=== PATIENT | female | born 1995 | race Caucasian/White ===

== ENCOUNTER 2021-10-14 23:48 | Inpatient (IN) | payer BC ==
[2021-10-15] MEDS ORDERED: Nalbuphine 10 MG/1 ML Vial IVPUSH PRN (00:58)
[2021-10-15] MEDS ORDERED: Calcium Carbonate 500 MG Tab.Chew PO PRN (00:58)
[2021-10-15] MEDS ORDERED: Sodium Chloride 0.9% 10 ML Syringe FLUSH PRN (00:58)
[2021-10-15] MEDS ORDERED: Ondansetron 4 MG/2 ML SDV IVPUSH PRN ×2 (00:58→06:59)
[2021-10-15] MEDS ORDERED: Lidocaine 1% 50 ML MDV INJECT PRN (00:58)
[2021-10-15] MEDS ORDERED: Oxytocin/Lactated Ringers 10 UNIT/1,000 ML BAG IV SCH ×3 (01:00→15:51)
[2021-10-15] MEDS: Lactated Ringers 1,000 ML IV SCH ×2 (01:40→10:10)
[2021-10-15] MEDS ORDERED: ePHEDrine 50 MG/ML SDV IVPUSH PRN (06:59)
[2021-10-15] MEDS ORDERED: fentaNYL 100 MCG/2 ML SDV EPIDUR PRN (06:59)
[2021-10-15] MEDS ORDERED: Bupivacaine/fentaNYL/NS 100 ML Bag EPIDUR SCH (07:00)
[2021-10-15] MEDS ORDERED: Bupivacaine 0.25% 10 ML SDV ONE (07:00)
--- NOTE | 2021-10-15 07:04 | PCM.PREANE ---
Preanesthetic Assessment - Procedure Proposed Procedure: Epidural - Anesthesia/Transfusion/Family Hx Anesthesia History: Prior Anesthesia Without Reaction Family History of Anesthesia Reaction: No Transfusion History: No Prior Transfusion(s) Intubation History: Unknown - Review of Systems General: No Symptoms Pulmonary: No Symptoms (Covid +: (09/16/2021) only symptoms being loss of taste and smell.) Cardiovascular: No Symptoms Gastrointestinal: No Symptoms (GERD) Neurological: No Symptoms Other: Reports: Diabetes (Gestational DM: BS=88), Anxiety - Physical Assessment NPO Status Date: 10/14/21 NPO Status Time: 19:30 Vital Signs: Last Vital Signs Temp 36.9 C 10/15/21 01:01 Pulse 109 H 10/15/21 01:01 Resp 15 10/15/21 01:01 BP 129/91 H 10/15/21 01:01 Pulse Ox 98 10/15/21 01:01 Height: 1.63 m Weight: 67.585 kg ASA Class: 2 Mental Status: Alert & Oriented x3 Airway Class: Mallampati = 2 Dentition: Reports: Normal Dentition (upper and lower retainers's/ right nare ring noted.), Caries Thyro-Mental Finger Breadths: 3 Mouth Opening Finger Breadths: 3 ROM/Head Extension: Full Lungs: Clear to Auscultation, Normal Respiratory Effort Cardiovascular: Regular Rate, Regular Rhythm, No Murmurs - Lab Values: Laboratory Last Values WBC 10.89 K/mm3 (3.98-10.04) H 10/15/21 01:20 RBC 4.04 M/mm3 (3.98-5.22) 10/15/21 01:20 Hgb 13.3 gm/dl (11.2-15.7) 10/15/21 01:20 Hct 38.2 % (34.1-44.9) 10/15/21 01:20 MCV 94.6 fl (79.4-94.8) 10/15/21 01:20 MCH 32.9 pg (25.6-32.2) H 10/15/21 01:20 MCHC 34.8 g/dl (32.2-35.5) 10/15/21 01:20 RDW Std Deviation 42.2 fL (36.4-46.3) 10/15/21 01:20 Plt Count 188 K/mm3 (182-369) D 10/15/21 01:20 MPV 10.6 fl (9.4-12.3) 10/15/21 01:20 Neut % (Auto) 69.6 % (34.0-71.1) 10/15/21 01:20 Lymph % (Auto) 19.7 % (19.3-51.7) 10/15/21 01:20 [place] % (Auto) 7.4 % (4.7-12.5) 10/15/21 01:20 Eos % (Auto) 2.4 (0.7-5.8) 10/15/21 01:20 Baso % (Auto) 0.3 % (0.1-1.2) 10/15/21 01:20 Neut # (Auto) 7.59 K/mm3 (1.56-6.13) H 10/15/21 01:20 Lymph # (Auto) 2.14 K/mm3 (1.18-3.74) 10/15/21 01:20 [place] # (Auto) 0.81 K/mm3 (0.24-0.36) H 10/15/21 01:20 Eos # (Auto) 0.26 K/mm3 (0.04-0.36) 10/15/21 01:20 Baso # (Auto) 0.03 K/mm3 (0.01-0.08) 10/15/21 01:20 POC Glucose 88 mg/dL (70-99) 10/15/21 06:33 Blood Type O POSITIVE 10/15/21 01:20 Above labs reviewed and noted and within acceptable ranges to proceed with epidural if desired. - Allergies Allergies/Adverse Reactions: Allergies Allergy/AdvReac Type Severity Reaction Status Date / Time No Known Allergies Allergy Verified 10/15/21 00:58 - Anesthesia Plan Pre-Op Medication Ordered: None - Acknowledgements Anesthesia Type Planned: Epidural Pt an Appropriate Candidate for the Planned Anesthesia: Yes Alternatives and Risks of Anesthesia Discussed w Pt/Guardian: Yes Pt/Guardian Understands and Agrees with Anesthesia Plan: Yes PreAnesthesia Questionnaire HEENT History: Reports: None Cardiovascular History: Reports: None Respiratory History: Reports: None Gastrointestinal History: Reports: None Genitourinary History: Reports: None PROJECT DEVELOPMENT MANAGER History: Reports: Musculoskeletal History: Reports: None Neurological History: Reports: None Psychiatric History: Reports: Anxiety, Depression Other Psychiatric History: took citalopram until January when stopped upon positive preg test. Pt states would like to start again on post day one if possible, and dose was 10mg PO daily. Endocrine/Metabolic History: Reports: Diabetes, Gestational, Other (See Below) Other Endocrine/Metabolic History: diet controlled, with sugars well managed throughout per pt Hematologic History: Reports: None Immunologic History: Reports: None Oncologic (Cancer) History: Reports: None Dermatologic History: Reports: None - Infectious Disease History Infectious Disease History: Reports: None - Past Surgical History Head Surgeries/Procedures: Reports: None HEENT Surgical History: Reports: Adenoidectomy, Myringotomy w Tube(s), Oral Surgery, Tonsillectomy Other HEENT Surgeries/Procedures: all above surgical hx age 3; with wisdom teeth (top only) removed in 2017 Cardiovascular Surgical History: Reports: None Respiratory Surgical History: Reports: None GI Surgical History: Reports: None Female Surgical History: Reports: None Endocrine Surgical History: Reports: None Neurological Surgical History: Reports: None Musculoskeletal Surgical History: Reports: None Oncologic Surgical History: Reports: None Dermatological Surgical History: Reports: Plastic Surgical Reconstruction/Repair - SUBSTANCE USE Tobacco Use Status *Q: Never Tobacco User Second Hand Smoke Exposure: No Recreational Drug Use History: No - CURRENT (IN HOUSE) MEDS Current Meds: Current Medications Calcium Carbonate/Glycine (Calcium Carbonate 500 Mg Tab.Chew) 1,000 mg PO Q2H PRN PRN Reason: Indigestion Ephedrine Sulfate (Ephedrine 50 Mg/Ml Sdv) 5 mg IVPUSH ASDIRECTED PRN PRN Reason: Hypotension Fentanyl (Fentanyl 100 Mcg/2 Ml Sdv) 100 mcg EPIDUR Q3H PRN PRN Reason: Pain Fentanyl/Bupivacaine HCl (Bupivacaine/Fentanyl/Ns 100 Ml Bag) 100 ml EPIDUR ASDIRECTED DIMA Oxytocin/Lactated Ringer's (Pitocin In Lr 10 Units/1,000 Ml) 10 unit in 1,000 mls @ 12 mls/hr IV TITRATE DIMA; Protocol Last Titration: 10/15/21 05:30 Dose: 10 munits/min, 60 mls/hr Documented by: Oxytocin/Lactated Ringer's (Pitocin In Lr 10 Units/1,000 Ml) 10 unit in 1,000 mls @ 500 mls/hr IV .CONTINUOUS [facility] Lactated Ringer's (Ringers, Lactated) 1,000 mls @ 100 mls/hr IV ASDIRECTED [facility] Last Admin: 10/15/21 01:40 Dose: 100 mls/hr Documented by: Lidocaine HCl (Lidocaine 1% 50 Ml Mdv) 50 ml INJECT ONETIME PRN PRN Reason: Other Miscellaneous Medication (Phenylephrine Hcl In 0.9% Nacl 1 Mg/10 Ml Syringe) 0.1 mg IVPUSH Q10M PRN PRN Reason: Hypotension Nalbuphine HCl (Nalbuphine 10 Mg/1 Ml Vial) 10 mg IVPUSH Q2H PRN PRN Reason: Pain Ondansetron HCl (Ondansetron 4 Mg/2 Ml Sdv) 4 mg IVPUSH Q4H PRN PRN Reason: Nausea/Vomiting Ondansetron HCl (Ondansetron 4 Mg/2 Ml Sdv) 4 mg IVPUSH ONETIME PRN PRN Reason: Nausea/Vomiting Sodium Chloride (Sodium Chloride 0.9% 10 Ml Syringe) 10 ml FLUSH ASDIRECTED PRN PRN Reason: Keep Vein Open
--- NOTE | 2021-10-15 08:15 | PCM.LDHP ---
L&D History of Present Illness - General Date of Service: 10/15/21 Admit Problem/Dx: Patient Status Order with Admit Dx/Problem 10/14/21 23:45 Patient Status [ADT] Routine 10/15/21 01:01 Patient Status [ADT] Routine Admission Diagnosis/Problem Admission Diagnosis/Problem Source of Information: Patient History Limitations: Reports: No Limitations - History of Present Illness Introduction:: Supriya Mills is a 25-year-old at 38 weeks 2 days (ALEXIA 10/27/2021) by an early ultrasound who presents with spontaneous rupture membranes. She reports that at around 11 PM on 10/14/2021 she had a large gush of fluid that was clear and odorless. She continued to have leaking of fluid afterwards. She states that there was a small amount of pink-tinged fluid initially. She was not feeling much for contractions after her water had broken but was noted to have some small contractions on monitoring when she first arrived to L&D. She reports that she had been feeling good movement prior to arrival to [facility]. She has been checking her blood sugars at home and they have been very well controlled. Timing/Duration: Reports: sudden onset (With large gush of fluid at around 11 PM on 10/14/2021) Location, : Reports: Lower back, Pelvic Quality: Reports: Pressure Severity: Mild Associated Symptoms: Reports: vaginal fluid, large amount. Denies: vaginal bleeding, vaginal discharge Present Illness Comments:: Supriya Mills is a 25-year-old at 38 weeks 2 days (ALEXIA 10/27/2021) by an early ultrasound who presents with spontaneous rupture membranes with clear fluid. She has had routine care with Dr. Edwards starting at 11 weeks gestational age. Patient has history of anxiety and depression and was on citalopram prior to and had stopped taking it prior to positive test. She received Tdap on 08/07/2021. She was diagnosed with gestational diabetes during and was able to keep her blood sugars well controlled with diet and exercise changes. She is not on any medication for her gestational diabetes. She declined influenza and COVID-19 vaccine. Her care is with Dr. Edwards and is complicated by: * A1 gestational diabetes, patient's blood sugars have been well controlled during with diet and exercise * History of anxiety and depression and was on citalopram prior to . She stopped taking the medication prior to her and desires to restart on medication after delivery. LPN MEDICAL ASSISTANT history : Current labs Blood type: O+ Antibody screen: Negative First trimester hematocrit/hemoglobin: 35.3%/12.2 on 04/09/2021 Platelets: 256 on 04/09/2021 Urine culture: Mixed skyla suggestive of contamination Rubella status: Immune Hepatitis B surface antigen: Negative RPR: Negative Hepatitis C: Negative HIV: Negative Gonorrhea: Negative Chlamydia: Negative Genetic testing: Normal Prequel genetic testing Anatomy ultrasound: Normal anatomy, no evidence of placenta previa, 44th percentile on 06/15/2021 One hour glucose tolerance test: 170 Second trimester hematocrit/hemoglobin: 35.0%/12.1 on 07/26/2021 Platelets: 273 on 07/26/2021 3-hour glucose tolerance test: Fasting 79, 1 hour 175, 2-hour 164 and 3-hour 151 GBS status: Negative - Related Data Allergies/Adverse Reactions: Allergies Allergy/AdvReac Type Severity Reaction Status Date / Time No Known Allergies Allergy Verified 10/15/21 00:58 Past Medical History HEENT History: Reports: None Cardiovascular History: Reports: None Respiratory History: Reports: None Gastrointestinal History: Reports: None Genitourinary History: Reports: None LPN MEDICAL ASSISTANT History: Reports: : 1 Para: 0 Musculoskeletal History: Reports: None Neurological History: Reports: None Psychiatric History: Reports: Anxiety, Depression Other Psychiatric History: took citalopram until January when stopped upon positive preg test. Pt states would like to start again on post day one if possible, and dose was 10mg PO daily. Endocrine/Metabolic History: Reports: Diabetes, Gestational, Other (See Below) Other Endocrine/Metabolic History: diet controlled, with sugars well managed throughout per pt Hematologic History: Reports: None Immunologic History: Reports: None Oncologic (Cancer) History: Reports: None Dermatologic History: Reports: None - Infectious Disease History Infectious Disease History: Reports: None - Past Surgical History Head Surgeries/Procedures: Reports: None HEENT Surgical History: Reports: Adenoidectomy, Myringotomy w Tube(s), Oral Surgery, Tonsillectomy Other HEENT Surgeries/Procedures: all above surgical hx age 3; with wisdom teeth (top only) removed in 2017 Cardiovascular Surgical History: Reports: None Respiratory Surgical History: Reports: None GI Surgical History: Reports: Appendectomy (in 2014 or 2015) Female Surgical History: Reports: None Endocrine Surgical History: Reports: None Neurological Surgical History: Reports: None Musculoskeletal Surgical History: Reports: None Oncologic Surgical History: Reports: None Dermatological Surgical History: Reports: Plastic Surgical Reconstruction/Repair Social & Family History - Family History Family Medical History: No Pertinent Family History - Tobacco Use Tobacco Use Status *Q: Never Tobacco User Second Hand Smoke Exposure: No - Tobacco Core Measures Tobacco Use/Smoking Within Last 30 Days: No Smokeless Tobacco Use in Last 30 Days: No - Caffeine Use Caffeine Use: Reports: None - Alcohol Use Alcohol Use History: No - Recreational Drug Use Recreational Drug Use: No H&P Review of Systems - Review of Systems: Review Of Systems: See Below General: Denies: Fever, Chills, Malaise, Fatigue HEENT: Reports: Sinus Congestion. Denies: Headaches, Rhinitis, Post Nasal Drip, Sore Throat, Visual Changes Pulmonary: Denies: Shortness of Breath, Wheezing, Pleuritic Chest Pain, Cough Cardiovascular: Denies: Chest Pain, Palpitations, Dyspnea on Exertion, Orthopnea Gastrointestinal: Denies: Abdominal Pain, Constipation, Diarrhea, Nausea, Vo miting Genitourinary: Denies: Dysuria, Frequency, Burning, Pain, Urgency Musculoskeletal: Reports: Back Pain (and hip pain of ) Skin: Denies: Rash, Lesions Psychiatric: Denies: Depression, Anxiety L&D Exam - Exam Exam: See Below - Vital Signs Vital Signs: Last Vital Signs Temp 36.9 C 10/15/21 01:01 Pulse 109 H 10/15/21 01:01 Resp 15 10/15/21 01:01 BP 129/91 H 10/15/21 01:01 Pulse Ox 98 10/15/21 01:01 Weight: 67.585 kg - OB Specific Contraction Duration (sec): 60-75 Contraction Frequency (min): 2-3 Contraction Intensity: Strong Movement: Active Heart Tones: Present Heart Tones per Min: 140 (+15 x 15 accelerations, no decelerations) Heart Rate (FHR) Variability: Moderate (6-25 bpm) Presentation: Vertex (By bedside ultrasound) Estimated Weight: 6.5-7 pounds by Jj - Nicholson Score Nicholson Score Cervix Position: Anterior Nicholson Score Consistency: Soft Nicholson Score Effacement: >80% (90%) Nicholson Score Dilation: > 5 cm (4-5 cm) Nicholson Score Infant's Station: -1 ,0 (0) Nicholson Score Total: 12 - Exam General: Alert, Oriented HEENT: Conjunctiva Clear, EOMI Neck: Supple, Trachea Midline Lungs: Clear to Auscultation, Normal Respiratory Effort Cardiovascular: Regular Rate, Regular Rhythm GI/Abdominal Exam: Soft, Non-Tender, No Distention, Other (Gravid). No: Guarding, Rigid, Rebound Genitourinary: Normal external exam Skin: Warm, Dry, Intact Psychiatric: Alert, Normal Affect, Normal Mood - Patient Data Lab Results Last 24 hrs: Laboratory Results - last 24 hr 10/15/21 10/15/21 10/15/21 Range/Units 01:20 01:20 01:45 WBC 10.89 H (3.98-10.04) K/mm3 RBC 4.04 (3.98-5.22) M/mm3 Hgb 13.3 (11.2-15.7) gm/dl Hct 38.2 (34.1-44.9) % MCV 94.6 (79.4-94.8) fl MCH 32.9 H (25.6-32.2) pg MCHC 34.8 (32.2-35.5) g/dl RDW Std Deviation 42.2 (36.4-46.3) fL Plt Count 188 D (182-369) K/mm3 MPV 10.6 (9.4-12.3) fl Neut % (Auto) 69.6 (34.0-71.1) % Lymph % (Auto) 19.7 (19.3-51.7) % [place] % (Auto) 7.4 (4.7-12.5) % Eos % (Auto) 2.4 (0.7-5.8) Baso % (Auto) 0.3 (0.1-1.2) % Neut # (Auto) 7.59 H (1.56-6.13) K/mm3 Lymph # (Auto) 2.14 (1.18-3.74) K/mm3 [place] # (Auto) 0.81 H (0.24-0.36) K/mm3 Eos # (Auto) 0.26 (0.04-0.36) K/mm3 Baso # (Auto) 0.03 (0.01-0.08) K/mm3 POC Glucose 84 (70-99) mg/dL Blood Type O POSITIVE 10/15/21 10/15/21 Range/Units 03:28 06:33 WBC (3.98-10.04) K/mm3 RBC (3.98-5.22) M/mm3 Hgb (11.2-15.7) gm/dl Hct (34.1-44.9) % MCV (79.4-94.8) fl MCH (25.6-32.2) pg MCHC (32.2-35.5) g/dl RDW Std Deviation (36.4-46.3) fL Plt Count (182-369) K/mm3 MPV (9.4-12.3) fl Neut % (Auto) (34.0-71.1) % Lymph % (Auto) (19.3-51.7) % [place] % (Auto) (4.7-12.5) % Eos % (Auto) (0.7-5.8) Baso % (Auto) (0.1-1.2) % Neut # (Auto) (1.56-6.13) K/mm3 Lymph # (Auto) (1.18-3.74) K/mm3 [place] # (Auto) (0.24-0.36) K/mm3 Eos # (Auto) (0.04-0.36) K/mm3 Baso # (Auto) (0.01-0.08) K/mm3 POC Glucose 96 88 (70-99) mg/dL Blood Type Result Diagrams: 10/15/21 01:20 - Problem List (1) 38 weeks gestation of SNOMED Code(s): 93280159 ICD Code: Z3A.38 - 38 WEEKS GESTATION OF Status: Acute Current Visit: Yes (2) Diet controlled White classification A1 gestational diabetes mellitus (GDM) SNOMED Code(s): 91633041 ICD Code: O24.410 - GESTATIONAL DIABETES MELLITUS IN , DIET CON TROLLED Status: Acute Current Visit: Yes (3) Depression SNOMED Code(s): 58819531 ICD Code: F32.A - DEPRESSION, UNSPECIFIED Status: Acute Current Visit: Yes (4) Anxiety SNOMED Code(s): 37088868 ICD Code: F41.9 - ANXIETY DISORDER, UNSPECIFIED Status: Acute Current Visit: Yes Problem List Initiated/Reviewed/Updated: Yes Orders Last 24hrs: Active Orders 24 hr Category Date Time Status Patient Status [ADT] Routine ADT 10/14/21 23:45 Active Patient Status [ADT] Routine ADT 10/15/21 01:01 Active Activity as Tolerated [RC] PFP Care 10/15/21 01:01 Active Blood Glucose Check, Bedside [RC] Q4HR Care 10/15/21 01:30 Active Communication Order [RC] ASDIRECTED Care 10/15/21 01:01 Active Heart Tones [RC] ASDIRECTED Care 10/15/21 01:03 Active Notify Provider [RC] ASDIRECTED Care 10/15/21 06:59 Active Notify Provider [RC] PFP Care 10/15/21 01:01 Active Notify Provider [RC] PRN Care 10/15/21 01:01 Active Oxygen Therapy [RC] ASDIRECTED Care 10/15/21 06:59 Active Peripheral IV Care [RC] . DIRECTED Care 10/15/21 01:03 Active Pulse Oximetry [RC] ASDIRECTED Care 10/15/21 06:59 Active Pump Management, Intrathecal [RC] ASDIRECTED Care 10/15/21 01:09 Active Urinary Catheter Assessment [RC] ASDIRECTED Care 10/15/21 00:58 Active Vaginal Exam [RC] PRN Care 10/14/21 23:45 Active Vital Signs [RC] PER UNIT ROUTINE Care 10/15/21 01:01 Active Regular Diet [DIET] Diet 10/15/21 Breakfast Active RAPID PLASMA REAGIN,RPR [CHEM] Routine Lab 10/15/21 01:20 Received TYPE AND SCREEN [BBK] Stat Lab 10/15/21 01:20 Results Bupivacaine/fentaNYL/NS [fentaNYL/Bupivacaine/NS 2 MCG- Med 10/15/21 07:00 Active 0.125% 100 ML] 100 ml EPIDUR ASDIRECTED Calcium Carbonate [Tums] Med 10/15/21 00:58 Active 1,000 mg PO Q2H PRN Lactated Ringers [Ringers, Lactated] 1,000 ml Med 10/15/21 01:00 Active IV ASDIRECTED Lidocaine 1% [Xylocaine 1%] Med 10/15/21 00:58 Active 50 ml INJECT ONETIME PRN Nalbuphine [Nubain] Med 10/15/21 00:58 Active 10 mg IVPUSH Q2H PRN Ondansetron [Zofran] Med 10/15/21 06:59 Active 4 mg IVPUSH ONETIME PRN Ondansetron [Zofran] Med 10/15/21 00:58 Active 4 mg IVPUSH Q4H PRN Oxytocin/Lactated Ringers [Pitocin in LR 10 Units/1,000 Med 10/15/21 01:00 Active ML] 10 unit in 1,000 ml IV .CONTINUOUS Oxytocin/Lactated Ringers [Pitocin in LR 10 Units/1,000 Med 10/15/21 01:00 Active ML] 10 unit in 1,000 ml IV TITRATE Phenylephrine HCl In 0.9% NaCl [Phenylephrine 1 MG/10 Med 10/15/21 06:59 Active ML-NS] 0.1 mg IVPUSH Q10M PRN Sodium Chloride 0.9% [Saline Flush] Med 10/15/21 00:58 Active 10 ml FLUSH ASDIRECTED PRN ePHEDrine [ePHEDrine sulfate] Med 10/15/21 06:59 Active 5 mg IVPUSH ASDIRECTED PRN fentaNYL [Sublimaze] Med 10/15/21 06:59 Active 100 mcg EPIDUR Q3H PRN Electronic Heart Tones Ext w TOCO [WOMSER] Oth 10/15/21 01:01 Ordered Routine Electronic Heart Tones Internal [WOMSER] Per Unit Oth 10/15/21 01:01 Ordered Routine Peripheral IV Insertion Adult [OM.PC] Routine Oth 10/15/21 01:01 Ordered Resuscitation Status Routine Resus Stat 10/15/21 00:58 Ordered Medication Orders Calcium Carbonate/Glycine (Calcium Carbonate 500 Mg Tab.Chew) 1,000 mg PO Q2H PRN PRN Reason: Indigestion Ephedrine Sulfate (Ephedrine 50 Mg/Ml Sdv) 5 mg IVPUSH ASDIRECTED PRN PRN Reason: Hypotension Fentanyl (Fentanyl 100 Mcg/2 Ml Sdv) 100 mcg EPIDUR Q3H PRN PRN Reason: Pain Fentanyl/Bupivacaine HCl (Bupivacaine/Fentanyl/Ns 100 Ml Bag) 100 ml EPIDUR ASDIRECTED [facility] Oxytocin/Lactated Ringer's (Pitocin In Lr 10 Units/1,000 Ml) 10 unit in 1,000 mls @ 12 mls/hr IV TITRATE [facility]; Protocol Last Titration: 10/15/21 05:30 Dose: 10 munits/min, 60 mls/hr Documented by: Titration: 10/15/21 04:53 Dose: 8 munits/min, 48 mls/hr Documented by: Titration: 10/15/21 03:58 Dose: 6 munits/min, 36 mls/hr Documented by: Titration: 10/15/21 03:00 Dose: 4 munits/min, 24 mls/hr Documented by: Admin: 10/15/21 02:15 Dose: 2 munits/min, 12 mls/hr Documented by: BRIGITTE Oxytocin/Lactated Ringer's (Pitocin In Lr 10 Units/1,000 Ml) 10 unit in 1,000 mls @ 500 mls/hr IV .CONTINUOUS [facility] Lactated Ringer's (Ringers, Lactated) 1,000 mls @ 100 mls/hr IV ASDIRECTED [facility] Last Admin: 10/15/21 01:40 Dose: 100 mls/hr Documented by: BRIGITTE Lidocaine HCl (Lidocaine 1% 50 Ml Mdv) 50 ml INJECT ONETIME PRN PRN Reason: Other Miscellaneous Medication (Phenylephrine Hcl In 0.9% Nacl 1 Mg/10 Ml Syringe) 0.1 mg IVPUSH Q10M PRN PRN Reason: Hypotension Nalbuphine HCl (Nalbuphine 10 Mg/1 Ml Vial) 10 mg IVPUSH Q2H PRN PRN Reason: Pain Ondansetron HCl (Ondansetron 4 Mg/2 Ml Sdv) 4 mg IVPUSH Q4H PRN PRN Reason: Nausea/Vomiting Ondansetron HCl (Ondansetron 4 Mg/2 Ml Sdv) 4 mg IVPUSH ONETIME PRN PRN Reason: Nausea/Vomiting Sodium Chloride (Sodium Chloride 0.9% 10 Ml Syringe) 10 ml FLUSH ASDIRECTED PRN PRN Reason: Keep Vein Open Assessment/Plan Comment:: Supriya Mills is a 25-year-old at 38 weeks 2 days with spontaneous rupture membranes and complicated by A1 gestational diabetes and history of anxiety/depression prior to Refer to observation for spontaneous rupture of membranes Continue Pitocin for augmentation of labor after patient did not have significant contractions on initial presentation Continuous monitoring Place IV and have Lactated Ringer's at 125 ml/hr May have small amounts of regular diet Activity as tolerated May have epidural as desired Plans to breast-feed after delivery Patient had fingerstick blood glucose levels checked every 2 hours and were normal for the first 6 hours of labor, we will decrease checks to every 4 hours at this time plan to increase checks to every 2 hours when she is 8 to 9 cm Patient is desires to restart on citalopram after delivery due to history of a nxiety and depression Anticipate vaginal delivery unless otherwise indicated Darío Pedro MD 8:31 AM 10/15/2020
[2021-10-15] MEDS ORDERED: Ibuprofen 600 MG Tab PO PRN (13:44)
[2021-10-15] MEDS ORDERED: Witch Hazel Medicated Pads 40/Jar TOP PRN ×2 (13:45→15:51)
[2021-10-15] MEDS ORDERED: Benzocaine/Menthol 20%-0.5% Spray 78 GM Cannister TOP PRN ×2 (13:46→15:51)
--- NOTE | 2021-10-15 13:58 | PCM.DEL ---
L & D Note - General Info Date of Service: 10/15/21 Mother's Due Date: 10/27/21 - Delivery Note Labor: Spontaneous, Augmented by Oxytocin Delivery Outcome: Livebirth Infant Delivery Method: Spontaneous Vaginal Delivery-Single Presentation: Left Occiput Anterior (FREEMAN) Nuchal Cord: None Prep: Povidone-Iodine (Betadine Anesthesia Type: Epidural Episiotomy Type: None Laceration: 2nd Degree (midline perineal laceration, repaired with 3-0 Vicryl), Labial (Right medial labia repaired with 4-0 Vicryl, left superior lateral and medial labia minora laceration repaired with 3-0 Vicryl and 4-0 Vicryl) Suture type: Vicryl Suture size: 3-0 Placenta: Intact, Spontaneous Cord: 3 Vessels Estimated Blood Loss: 300 Resuscitation Needed: No : Bulb Syringe, Stimulated, Warmed, Gervais Used Provider: Bennie Edwards Score 1 min: 8 Score 5 min: 9 Second Stage Interventions: Reports: Pushing Effectively, Pushing, Stirrups/Leg Supports Delivery Comments (Free Text/Narrative):: Stage I: Supriya Mills was admitted for spontaneous rupture membranes with large amount of clear fluid at home. On admission her cervix was dilated to 1 cm. She was GBS negative. She was started on Pitocin for augmentation of labor with not having any contractions after her water had broken. She was given an epidural for anesthesia. She progressed to complete and pushing. Stage II: On 10/15/2021 she had a normal vaginal delivery of a live female at 11:56. Apgars of 8 & 9. Weight of 2730 g (6 lbs 0.3 oz). Length of 19.0 inches. There was no nuchal cord. was delivered in FREEMAN position. The cord was doubly clamped and cut by father of the . was placed on mother's abdomen and taken to the warmer for further evaluation. Stage III: She had a spontaneous delivery of an intact placenta in James presentation. Three vessel cord. She was given pitocin and fundal massage. She had a second-degree midline perineal laceration that was repaired with 3-0 Vicryl. She had a right medial labia minora laceration that was repaired in running fashion with 4-0 Vicryl. She had a left labial laceration with extension from near the clitoral beard to the medial portion of the labia minora that was repaired with closing deep space with 3-0 Vicryl and the skin in a running fashion using 4-0 Vicryl. Patient had straight catheterization with return of 100 mL of of urine. Mom and baby were stable to recovery. EBL of 300 mL. Darío Pedro MD 2:25 PM 10/15/2021 - General Info Date of Service: 10/15/21 - Patient Data Vitals - Most Recent: Last Vital Signs Temp 36.9 C 10/15/21 01:01 Pulse 109 H 10/15/21 01:01 Resp 15 10/15/21 01:01 BP 129/91 H 10/15/21 01:01 Pulse Ox 98 10/15/21 01:01 Weight - Most Recent: 67.585 kg I&O - Last 24 Hours: Intake & Output 10/14/21 10/15/21 10/15/21 22:59 06:59 14:59 Intake Total 1999 Balance 1999 Lab Results Last 24 Hours: Laboratory Results - last 24 hr 10/15/21 10/15/21 10/15/21 Range/Units 01:20 01:20 01:45 WBC 10.89 H (3.98-10.04) K/mm3 RBC 4.04 (3.98-5.22) M/mm3 Hgb 13.3 (11.2-15.7) gm/dl Hct 38.2 (34.1-44.9) % MCV 94.6 (79.4-94.8) fl MCH 32.9 H (25.6-32.2) pg MCHC 34.8 (32.2-35.5) g/dl RDW Std Deviation 42.2 (36.4-46.3) fL Plt Count 188 D (182-369) K/mm3 MPV 10.6 (9.4-12.3) fl Neut % (Auto) 69.6 (34.0-71.1) % Lymph % (Auto) 19.7 (19.3-51.7) % Whitman % (Auto) 7.4 (4.7-12.5) % Eos % (Auto) 2.4 (0.7-5.8) Baso % (Auto) 0.3 (0.1-1.2) % Neut # (Auto) 7.59 H (1.56-6.13) K/mm3 Lymph # (Auto) 2.14 (1.18-3.74) K/mm3 Whitman # (Auto) 0.81 H (0.24-0.36) K/mm3 Eos # (Auto) 0.26 (0.04-0.36) K/mm3 Baso # (Auto) 0.03 (0.01-0.08) K/mm3 POC Glucose 84 (70-99) mg/dL Blood Type O POSITIVE 10/15/21 10/15/21 10/15/21 Range/Units 03:28 06:33 09:55 WBC (3.98-10.04) K/mm3 RBC (3.98-5.22) M/mm3 Hgb (11.2-15.7) gm/dl Hct (34.1-44.9) % MCV (79.4-94.8) fl MCH (25.6-32.2) pg MCHC (32.2-35.5) g/dl RDW Std Deviation (36.4-46.3) fL Plt Count (182-369) K/mm3 MPV (9.4-12.3) fl Neut % (Auto) (34.0-71.1) % Lymph % (Auto) (19.3-51.7) % Whitman % (Auto) (4.7-12.5) % Eos % (Auto) (0.7-5.8) Baso % (Auto) (0.1-1.2) % Neut # (Auto) (1.56-6.13) K/mm3 Lymph # (Auto) (1.18-3.74) K/mm3 Whitman # (Auto) (0.24-0.36) K/mm3 Eos # (Auto) (0.04-0.36) K/mm3 Baso # (Auto) (0.01-0.08) K/mm3 POC Glucose 96 88 75 (70-99) mg/dL Blood Type Med Orders - Current: Current Medications Benzocaine/Menthol (Benzocaine/Menthol 20%-0.5% [place] 78 Gm Cannister) 76 gm TOP ASDIRECTED PRN PRN Reason: Perineal Comfort Measure Calcium Carbonate/Glycine (Calcium Carbonate 500 Mg Tab.Chew) 1,000 mg PO Q2H PRN PRN Reason: Indigestion Ibuprofen (Ibuprofen 600 Mg Tab) 600 mg PO Q6H PRN PRN Reason: Pain Ondansetron HCl (Ondansetron 4 Mg/2 Ml Sdv) 4 mg IVPUSH Q4H PRN PRN Reason: Nausea/Vomiting Ondansetron HCl (Ondansetron 4 Mg/2 Ml Sdv) 4 mg IVPUSH ONETIME PRN PRN Reason: Nausea/Vomiting Sodium Chloride (Sodium Chloride 0.9% 10 Ml Syringe) 10 ml FLUSH ASDIRECTED PRN PRN Reason: Keep Vein Open Witch Lilibeth (Witch Lilibeth Medicated Pads 40/Jar) 1 pad TOP ASDIRECTED PRN PRN Reason: Perineal Comfort Measure Discontinued Medications Ephedrine Sulfate (Ephedrine 50 Mg/Ml Sdv) 5 mg IVPUSH ASDIRECTED PRN PRN Reason: Hypotension Fentanyl (Fentanyl 100 Mcg/2 Ml Sdv) 100 mcg EPIDUR Q3H PRN PRN Reason: Pain Last Admin: 10/15/21 10:09 Dose: 100 mcg Documented by: Fentanyl/Bupivacaine HCl (Bupivacaine/Fentanyl/Ns 100 Ml Bag) 100 ml EPIDUR ASDIRECTED DIMA Last Admin: 10/15/21 10:10 Dose: 100 ml Documented by: Oxytocin/Lactated Ringer's (Pitocin In Lr 10 Units/1,000 Ml) 10 unit in 1,000 mls @ 12 mls/hr IV TITRATE DIMA; Protocol Last Titration: 10/15/21 05:30 Dose: 10 munits/min, 60 mls/hr Documented by: Oxytocin/Lactated Ringer's (Pitocin In Lr 10 Units/1,000 Ml) 10 unit in 1,000 mls @ 500 mls/hr IV .CONTINUOUS DIMA Lactated Ringer's (Ringers, Lactated) 1,000 mls @ 100 mls/hr IV ASDIRECTED DIMA Last Admin: 10/15/21 10:10 Dose: 100 mls/hr Documented by: Lidocaine HCl (Lidocaine 1% 50 Ml Mdv) 50 ml INJECT ONETIME PRN PRN Reason: Other Miscellaneous Medication (Phenylephrine Hcl In 0.9% Nacl 1 Mg/10 Ml Syringe) 0.1 mg IVPUSH Q10M PRN PRN Reason: Hypotension Nalbuphine HCl (Nalbuphine 10 Mg/1 Ml Vial) 10 mg IVPUSH Q2H PRN PRN Reason: Pain Last Admin: 10/15/21 08:14 Dose: 10 mg Documented by: - Problem List & Annotations (1) 38 weeks gestation of SNOMED Code(s): 81990638 Code(s): Z3A.38 - 38 WEEKS GESTATION OF Status: Acute Current Visit: Yes (2) Diet controlled White classification A1 gestational diabetes mellitus (GDM) SNOMED Code(s): 96341122 Code(s): O24.410 - GESTATIONAL DIABETES MELLITUS IN , DIET CONTROLLED Status: Acute Current Visit: Yes (3) Depression SNOMED Code(s): 20704325 Code(s): F32.A - DEPRESSION, UNSPECIFIED Status: Acute Current Visit: Yes (4) Anxiety SNOMED Code(s): 53960397 Code(s): F41.9 - ANXIETY DISORDER, UNSPECIFIED Status: Acute Current Visit: Yes (5) Vaginal delivery SNOMED Code(s): 071921582 Code(s): O80 - ENCOUNTER FOR FULL-TERM UNCOMPLICATED DELIVERY Status: Acute Current Visit: Yes (6) Obstetric labial laceration, delivered, current hospitalization SNOMED Code(s): 105855157, 042272646, 090389720 Code(s): O70.0 - FIRST DEGREE PERINEAL LACERATION DURING DELIVERY Status: Acute Current Visit: Yes (7) Second degree perineal laceration during delivery SNOMED Code(s): 4481008 Code(s): O70.1 - SECOND DEGREE PERINEAL LACERATION DURING DELIVERY Status: Acute Current Visit: Yes - Problem List Review Problem List Initiated/Reviewed/Updated: Yes - My Orders Last 24 Hours: My Active Orders 10/14/21 23:45 Patient Status [ADT] Routine Vaginal Exam [RC] PRN 10/15/21 00:58 Urinary Catheter Assessment [RC] ASDIRECTED Calcium Carbonate [Tums] 1,000 mg PO Q2H PRN Ondansetron [Zofran] 4 mg IVPUSH Q4H PRN Sodium Chloride 0.9% [Saline Flush] 10 ml FLUSH ASDIRECTED PRN Resuscitation Status Routine 10/15/21 01:01 Patient Status [ADT] Routine Activity as Tolerated [RC] PFP Communication Order [RC] ASDIRECTED Notify Provider [RC] PFP Notify Provider [RC] PRN Vital Signs [RC] PER UNIT ROUTINE Electronic Heart Tones Ext w TOCO [WOMSER] Routine Electronic Heart Tones Internal [WOMSER] Per Unit Routine Peripheral IV Insertion Adult [OM.PC] Routine 10/15/21 01:03 Heart Tones [RC] ASDIRECTED Peripheral IV Care [RC] . DIRECTED 10/15/21 01:09 Pump Management, Intrathecal [RC] ASDIRECTED 10/15/21 01:20 RAPID PLASMA REAGIN,RPR [CHEM] Routine TYPE AND SCREEN [BBK] Stat 10/15/21 Breakfast Regular Diet [DIET] 10/15/21 13:44 Ibuprofen [Motrin] 600 mg PO Q6H PRN 10/15/21 13:45 witch Lilibeth [Tucks] 1 pad TOP ASDIRECTED PRN 10/15/21 13:46 Benzocaine/Menthol [Dermoplast Pain Relief 20%-0.5% [place]] 76 gm TOP ASDIRECTED PRN 10/15/21 13:54 Patient Status Manage Transfer [TRANSFER] Routine - Plan Plan:: Supriya Mills is a 25-year-old G1 now P1-0-0-1 s/p , PPD #0 with complicated by A1 gestational diabetes and history of anxiety/depression prior to Admit to inpatient following normal spontaneous vaginal delivery Continue Pitocin per unit protocol following delivery of placenta and lactated Ringer's until tolerating regular diet Regular diet Vitals per unit routine Ibuprofen and Tylenol for pain control Assist with breast-feeding as needed Continue to monitor lochia Restart citalopram for anxiety and depression Check fasting blood glucose levels in the morning during hospitalization Anticipate discharge home on day #2 Darío Pedro MD 2:25 PM 10/15/2021
[2021-10-15] MEDS ORDERED: Acetaminophen 325 MG Tab PO PRN (15:51)
[2021-10-15] MEDS ORDERED: Hydrocortisone Acetate 25 MG Supp RECTAL PRN (15:51)
[2021-10-15] MEDS: Ibuprofen 600 MG Tab PO PRN ×2 (16:54→23:50)
[2021-10-15] MEDS ORDERED: Magnesium Hydroxide 400 MG/5 ML Susp 30 ML Cup PO PRN (21:00)
[2021-10-15] MEDS: Docusate Sodium 100 MG Cap PO PRN (23:50)
[2021-10-16] MEDS: Prenatal Multivitamin with Calcium/Folic Acid/Iron Tab PO SCH (09:15)
[2021-10-16] MEDS: Citalopram 10 MG Tab PO SCH (09:15)
[2021-10-16] MEDS: Ibuprofen 600 MG Tab PO PRN ×2 (12:19→21:21)
--- NOTE | 2021-10-16 12:26 | PCM.SN.2 ---
- Free Text/Narrative Note: Post Progress Note PPD #1 Subjective: Doing well overall. Ambulating without difficulty. Lochia minimal. Voiding without difficulty. Tolerating regular diet without nausea or vomiting. Pain controlled with oral medications. Reports that she is feeling sore throughout the entirety of her body. Breast-feeding with minimal difficulty. Objective: Vitals: Vital Signs - 24 hr 10/15/21 10/16/21 10/16/21 20:04 03:35 08:42 Temperature 36.7 C 36.7 C 36.7 C Pulse, 106 H 98 103 H Peripheral Respiratory 14 13 Rate Blood Pressure 119/65 120/79 133/78 O2 Sat by Pulse 92 L 95 98 Oximetry 10/16/21 09:02 Temperature Pulse, Peripheral Respiratory 14 Rate Blood Pressure O2 Sat by Pulse Oximetry Physical Exam General: Alert and oriented, no acute distress Lungs: Clear to auscultation bilaterally Heart: Regular rate and rhythm Abdomen: Soft, minimal appropriate tenderness, non-distended, fundus midline, nontender, and 2 fingerbreadths below the umbilicus Extremities: No edema in bilateral lower extremities, no calf tenderness bilaterally. Laboratory Results - last 24 hr 10/15/21 10/15/21 10/16/21 Range/Units 01:20 01:20 07:25 POC Glucose 75 (70-99) mg/dL RPR Non-reactive (NONREACTIVE) Gel Antibody Screen Negative ASSESSMENT: 25-year-old female -0-0-1 s/p normal vaginal delivery PPD #1, complicated by A1 gestational diabetes and history of anxiety/depression prior to PLAN: Doing well Breast-feeding with minimal difficulty. Assist as needed Lochia minimal. Continue to monitor for appropriate lochia. Continue routine care Recommend for patient to continue to use Tylenol and ibuprofen for pain control. Discussed using heating pad to help with abdominal and low back soreness following delivery. Fasting blood glucose this morning was 75, no evidence of elevated levels. No treatment needed at this time. Patient restarted on citalopram 10 mg daily this morning. Patient to continue after discharge. Anticipate discharge home tomorrow Darío Pedro MD 12:25 PM 10/16/2021
--- NOTE | 2021-10-16 14:58 | PCM48HPAN ---
Post Anesthesia Note - EVALUATION WITHIN 48HRS OF ANESTHETIC Vital Signs in Normal Range: Yes Patient Participated in Evaluation: Yes Respiratory Function Stable: Yes Airway Patent: Yes Cardiovascular Function Stable: Yes Hydration Status Stable: Yes Pain Control Satisfactory: Yes Nausea and Vomiting Control Satisfactory: Yes Mental Status Recovered: Yes Vital Signs: Last Vital Signs Temp 98.1 F 10/16/21 08:42 Pulse 103 H 10/16/21 08:42 Resp 14 10/16/21 09:02 BP 133/78 10/16/21 08:42 Pulse Ox 98 10/16/21 08:42 - COMMENTS/OBSERVATIONS Free Text/Narrative:: Patient resting in bed holding baby when visiting with patient. Patient stated that she was "very happy" with her epidural and labor experience. Patient complained of mild back pain in epidural placement site but is controlled and has not gotten worse. Discussed signs and symptoms of infection, post-dural puncture headaches, post- depression, and if patient experiences increased back discomfort. Encouraged patient if any of those signs or symptoms develop to contact OB/Anesthesia so the patient can be treated accordingly if needed. Patient verbalized understanding. Patient did not voice any questions or concerns at this time. Jocelyn Jones, CANINE ENFORCEMENT OFFICER
[2021-10-16] MEDS: Docusate Sodium 100 MG Cap PO PRN (21:21)
--- NOTE | 2021-10-17 08:58 | PCM.SN.2 ---
- Free Text/Narrative Note: Post Progress Note PPD #2 Subjective: Doing well overall. Ambulating without difficulty. Lochia minimal. Voiding without difficulty. Tolerating regular diet without nausea or vomiting. Pain controlled with oral medications. Reports that the heating pad she used overnight helped significantly with her low back pain and soreness. Breast- feeding with formula supplementation without difficulty. Objective: Vitals: Vital Signs - 24 hr 10/16/21 10/16/21 10/16/21 09:02 12:26 20:30 Temperature 37.0 C Temperature [ 36.7 C Temporal] Pulse, 94 Peripheral Pulse, 93 Peripheral [ Pulse Oximetry] Respiratory 14 24 H 14 Rate Blood Pressure 133/80 Blood Pressure 125/68 [Right Upper Arm] O2 Sat by Pulse 97 93 L Oximetry 10/17/21 04:36 Temperature 36.7 C Temperature [ Temporal] Pulse, 101 H Peripheral Pulse, Peripheral [ Pulse Oximetry] Respiratory 14 Rate Blood Pressure 127/81 Blood Pressure [Right Upper Arm] O2 Sat by Pulse 100 Oximetry Physical Exam General: Alert and oriented, no acute distress Lungs: Clear to auscultation bilaterally Heart: Regular rate and rhythm Abdomen: Soft, minimal appropriate tenderness, non-distended, fundus midline, nontender, and 3 fingerbreadths below the umbilicus Extremities: No edema in bilateral lower extremities, no calf tenderness bilaterally. ASSESSMENT: 25-year-old female -0-0-1 s/p normal vaginal delivery PPD #2, complicated by A1 gestational diabetes and history of anxiety/depression prior to PLAN: Doing well Breast-feeding with formula supplementation due to jaundice of infant with minimal difficulty. Assist as needed Lochia minimal. Continue to monitor for appropriate lochia. Continue routine care Continue to use Tylenol and ibuprofen for pain control. Reports heating pad has helped with her abdominal and low back soreness. Continue citalopram 10 mg daily this morning. Patient to continue after discharge. Discharge home today Darío Pedro MD 8:58 AM 10/17/2021
--- NOTE | 2021-10-17 09:07 | PCM.DCSUM1 ---
Discharge Summary - Hospital Course Free Text/Narrative:: - General Info Date of Service: 10/15/21 Mother's Due Date: 10/27/21 - Delivery Note Labor: Spontaneous, Augmented by Oxytocin Delivery Outcome: Livebirth Infant Delivery Method: Spontaneous Vaginal Delivery-Single Presentation: Left Occiput Anterior (FREEMAN) Nuchal Cord: None Prep: Povidone-Iodine (Betadine Anesthesia Type: Epidural Episiotomy Type: None Laceration: 2nd Degree (midline perineal laceration, repaired with 3-0 Vicryl), Labial (Right medial labia repaired with 4-0 Vicryl, left superior lateral and medial labia minora laceration repaired with 3-0 Vicryl and 4-0 Vicryl) Suture type: Vicryl Suture size: 3-0 Placenta: Intact, Spontaneous Cord: 3 Vessels Estimated Blood Loss: 300 Resuscitation Needed: No : Bulb Syringe, Stimulated, Warmed, [place] Used Provider: Bennie Edwards Score 1 min: 8 Score 5 min: 9 Second Stage Interventions: Reports: Pushing Effectively, Pushing, Stirrups/Leg Supports Delivery Comments (Free Text/Narrative):: Stage I: Supriya Mills was admitted for spontaneous rupture membranes with large amount of clear fluid at home. On admission her cervix was dilated to 1 cm. She was GBS negative. She was started on Pitocin for augmentation of labor with not having any contractions after her water had broken. She was given an epidural for anesthesia. She progressed to complete and pushing. Stage II: On 10/15/2021 she had a normal vaginal delivery of a live female infant at 11:56. Apgars of 8 & 9. Weight of 2730 g (6 lbs 0.3 oz). Length of 19.0 inches. There was no nuchal cord. was delivered in FREEMAN position. The cord was doubly clamped and cut by father of the infant. Infant was placed on mother's abdomen and taken to the warmer for further evaluation. Stage III: She had a spontaneous delivery of an intact placenta in James presentation. Three vessel cord. She was given pitocin and fundal massage. She had a second-degree midline perineal laceration that was repaired with 3-0 Vicryl. She had a right medial labia minora laceration that was repaired in run oksana fashion with 4-0 Vicryl. She had a left labial laceration with extension from near the clitoral beard to the medial portion of the labia minora that was repaired with closing deep space with 3-0 Vicryl and the skin in a running fashion using 4-0 Vicryl. Patient had straight catheterization with return of 100 mL of of urine. Mom and baby were stable to recovery. EBL of 300 mL. Diagnosis: Stroke: No - Discharge Data Discharge Date: 10/17/21 Discharge Disposition: Home, Self-Care 01 Condition: Good - Referral to Home Health Primary Care Physician: Bennie Edwards MD - Discharge Diagnosis/Problem(s) (1) 38 weeks gestation of SNOMED Code(s): 30060450 ICD Code: Z3A.38 - 38 WEEKS GESTATION OF Status: Acute Current Visit: Yes (2) Diet controlled White classification A1 gestational diabetes mellitus (GDM) SNOMED Code(s): 97695014 ICD Code: O24.410 - GESTATIONAL DIABETES MELLITUS IN , DIET CONTROLLED Status: Acute Current Visit: Yes (3) Depression SNOMED Code(s): 44504877 ICD Code: F32.A - DEPRESSION, UNSPECIFIED Status: Acute Current Visit: Yes (4) Anxiety SNOMED Code(s): 38686438 ICD Code: F41.9 - ANXIETY DISORDER, UNSPECIFIED Status: Acute Current Visit: Yes (5) Vaginal delivery SNOMED Code(s): 367725591 ICD Code: O80 - ENCOUNTER FOR FULL-TERM UNCOMPLICATED DELIVERY Status: Acute Current Visit: Yes (6) Obstetric labial laceration, delivered, current hospitalization SNOMED Code(s): 039046970, 102493703, 174633877 ICD Code: O70.0 - FIRST DEGREE PERINEAL LACERATION DURING DELIVERY Status: Acute Current Visit: Yes (7) Second degree perineal laceration during delivery SNOMED Code(s): 1064113 ICD Code: O70.1 - SECOND DEGREE PERINEAL LACERATION DURING DELIVERY Status: Acute Current Visit: Yes - Patient Summary/Data Complications: None Consults: None Hospital Course: Supriya Mills was admitted for spontaneous rupture of membranes with large amount of clear fluid at home. On admission her cervix was dilated to 1 cm. She was GBS negative. She was given pitocin for augmentation of labor with not having any contractions after spontaneous rupture membranes. She was given an epidural for anesthesia. She progressed to complete and began pushing. On 10/15/2021 she had a normal vaginal delivery of a live female at 11:56. Apgars of 8 and 9. Weight of 2730 g (6 pounds 0.3 ounces). Her course was uneventful. Her pain was well controlled and she had minimal lochia. She was ambulating, tolerating a regular diet and voiding normally. She was breast- feeding with formula supplementation with minimal difficulty. She was afebrile and her hematocrit was 38.2 on admission.her fasting fingerstick blood glucose level in the morning of PPD #1 was 75. She desired to be discharged home on the morning of PPD #2. Her blood type is O+. - Patient Instructions Diet: Regular Diet as Tolerated Activity: Apply Ice, As Tolerated Activity, Other: Nothing in the vagina for 6 weeks Driving: May Drive Today Showering/Bathing: May Shower Notify Provider of: Fever, Increased Pain, Swelling and Redness, Drainage, Nausea and/or Vomiting Other/Special Instructions: Please contact your physician's office if you have heavy vaginal bleeding enough to soak a pad in less than an hour for several hours. Monitor for any signs of an infection in the breasts with severe pain or redness of the breast. - Discharge Plan *PRESCRIPTION DRUG MONITORING PROGRAM REVIEWED*: Not Applicable *COPY OF PRESCRIPTION DRUG MONITORING REPORT IN PATIENT YARA: Not Applicable Home Medications: Home Meds Acetaminophen [Tylenol] 650 mg PO Q6H PRN tablet 10/17/21 [Rx] Benzocaine/Menthol [Dermoplast Pain Relief 20%-0.5% Kendall] 1 spray TOP ASDIRECTED PRN canister 10/17/21 [Rx] Citalopram [Citalopram HBr] 10 mg PO DAILY tablet 10/17/21 [Rx] Docusate Sodium [Colace] 100 mg PO BID PRN cap 10/17/21 [Rx] Hydrocortisone Acetate [Anucort-HC] 25 mg RECTAL BID PRN supp 10/17/21 [Rx] Ibuprofen [Motrin] 600 mg PO Q6H PRN tablet 10/17/21 [Rx] Vit with Ca/FA/Iron [ Plus Iron] 1 each PO DAILY tablet 10/17/21 [Rx] aleah Mcelroy [Tucks] 1 pad TOP ASDIRECTED PRN pad 10/17/21 [Rx] Patient Handouts: Care of a Perineal Tear, Care After Vaginal Delivery Referrals: Bennie Edwards MD [Primary Care Provider] - (Follow-up in 2 weeks for routine visit or earlier as needed.) - Discharge Summary/Plan Comment DC Time >30 min.: No Total # of Minutes for Discharge Time: 15 minutes - Patient Data Vitals - Most Recent: Last Vital Signs Temp 36.7 C 10/17/21 04:36 Pulse 101 H 10/17/21 04:36 Resp 14 10/17/21 04:36 BP 127/81 10/17/21 04:36 Pulse Ox 100 10/17/21 04:36 Weight - Most Recent: 67.585 kg Med Orders - Current: Current Medications Acetaminophen (Acetaminophen 325 Mg Tab) 650 mg PO Q6H PRN PRN Reason: mild pain or fever Benzocaine/Menthol (Benzocaine/Menthol 20%-0.5% Kendall 78 Gm Cannister) 0 gm TOP ASDIRECTED PRN PRN Reason: Perineal Comfort Measure Citalopram Hydrobromide (Citalopram 10 Mg Tab) 10 mg PO DAILY DIMA Last Admin: 10/16/21 09:15 Dose: 10 mg Documented by: Docusate Sodium (Docusate Sodium 100 Mg Cap) 100 mg PO BID PRN PRN Reason: Constipation Last Admin: 10/16/21 21:21 Dose: 100 mg Documented by: Hydrocortisone Acetate (Hydrocortisone Acetate 25 Mg Supp) 25 mg RECTAL BID PRN PRN Reason: Hemorrhoid pain Oxytocin/Lactated Ringer's (Pitocin In Lr 10 Units/1,000 Ml) 10 unit in 1,000 mls @ 100 mls/hr IV TITRATE DIMA; Protocol Ibuprofen (Ibuprofen 600 Mg Tab) 600 mg PO Q6H PRN PRN Reason: Mild pain or fever Last Admin: 10/16/21 21:21 Dose: 600 mg Documented by: Magnesium Hydroxide (Magnesium Hydroxide 400 Mg/5 Ml Susp 30 Ml Cup) 30 ml PO BEDTIME PRN PRN Reason: Constipation Prenat Multivit/Cutter Hot Knife/Iron/Folic Ac ( Multivitamin With Calcium/Folic Acid/Iron Tab) 1 each PO DAILY DIMA Last Admin: 10/16/21 09:15 Dose: 1 each Documented by: Aleah Mcelroy (Aleah Mcelroy Medicated Pads 40/Jar) 1 pad TOP ASDIRECTED PRN PRN Reason: Perineal Comfort Measure Discontinued Medications Benzocaine/Menthol (Benzocaine/Menthol 20%-0.5% Kendall 78 Gm Cannister) 76 gm TOP ASDIRECTED PRN PRN Reason: Perineal Comfort Measure Last Admin: 10/15/21 14:23 Dose: 1 can Documented by: Bupivacaine HCl (Bupivacaine 0.25% 10 Ml Sdv) 10 ml .ROUTE .STK-MED ONE Stop: 10/15/21 07:01 Calcium Carbonate/Glycine (Calcium Carbonate 500 Mg Tab.Chew) 1,000 mg PO Q2H PRN PRN Reason: Indigestion Ephedrine Sulfate (Ephedrine 50 Mg/Ml Sdv) 5 mg IVPUSH ASDIRECTED PRN PRN Reason: Hypotension Fentanyl (Fentanyl 100 Mcg/2 Ml Sdv) 100 mcg EPIDUR Q3H PRN PRN Reason: Pain Last Admin: 10/15/21 10:09 Dose: 100 mcg Documented by: Fentanyl/Bupivacaine HCl (Bupivacaine/Fentanyl/Ns 100 Ml Bag) 100 ml EPIDUR ASDIRECTED DIMA Last Admin: 10/15/21 10:10 Dose: 100 ml Documented by: Oxytocin/Lactated Ringer's (Pitocin In Lr 10 Units/1,000 Ml) 10 unit in 1,000 mls @ 12 mls/hr IV TITRATE DIMA; Protocol Last Titration: 10/15/21 11:56 Dose: 83.33 munits/min, 500 mls/hr Documented by: Oxytocin/Lactated Ringer's (Pitocin In Lr 10 Units/1,000 Ml) 10 unit in 1,000 mls @ 500 mls/hr IV .CONTINUOUS DIMA Lactated Ringer's (Ringers, Lactated) 1,000 mls @ 100 mls/hr IV ASDIRECTED DIMA Last Admin: 10/15/21 10:10 Dose: 100 mls/hr Documented by: Ibuprofen (Ibuprofen 600 Mg Tab) 600 mg PO Q6H PRN PRN Reason: Pain Lidocaine HCl (Lidocaine 1% 50 Ml Mdv) 50 ml INJECT ONETIME PRN PRN Reason: Other Miscellaneous Medication (Phenylephrine Hcl In 0.9% Nacl 1 Mg/10 Ml Syringe) 0.1 mg IVPUSH Q10M PRN PRN Reason: Hypotension Nalbuphine HCl (Nalbuphine 10 Mg/1 Ml Vial) 10 mg IVPUSH Q2H PRN PRN Reason: Pain Last Admin: 10/15/21 08:14 Dose: 10 mg Documented by: Ondansetron HCl (Ondansetron 4 Mg/2 Ml Sdv) 4 mg IVPUSH Q4H PRN PRN Reason: Nausea/Vomiting Ondansetron HCl (Ondansetron 4 Mg/2 Ml Sdv) 4 mg IVPUSH ONETIME PRN PRN Reason: Nausea/Vomiting Sodium Chloride (Sodium Chloride 0.9% 10 Ml Syringe) 10 ml FLUSH ASDIRECTED PRN PRN Reason: Keep Vein Open Witch Lilibeth (Witch Lilibeth Medicated Pads 40/Jar) 1 pad TOP ASDIRECTED PRN PRN Reason: Perineal Comfort Measure Last Admin: 10/15/21 14:23 Dose: 1 box Documented by:
[2021-10-17] MEDS: Prenatal Multivitamin with Calcium/Folic Acid/Iron Tab PO SCH (10:32)
[2021-10-17] MEDS: Docusate Sodium 100 MG Cap PO PRN (10:32)
[2021-10-17] MEDS: Citalopram 10 MG Tab PO SCH (10:36)
== END 2021-10-17 16:30 | disposition home or self-care (01) | DRG 560 ==
LOC: JD.OBCHECK 23:48 → JD.OB 23:54 → JD.OBCHECK 10-15 01:00 → JD.OB 10-15 01:01 → OBSVTOIN 10-15 11:56 → JD.OB 10-15 11:57
PROVIDERS: ADMIT Obstetrics & Gynecology; ATTEND Obstetrics & Gynecology
PROC: 10E0XZZ Delivery of Products of Conception, External Approach (ICD-10-PCS; principal; 2021-10-15)
PROC: 0KQM0ZZ Repair Perineum Muscle, Open Approach (ICD-10-PCS; 2021-10-15)
PROC: 3E0R3BZ Introduction of Anesthetic Agent into Spinal Canal, Percutaneous Approach (ICD-10-PCS; 2021-10-15)
DX: O24.420 Gestational diabetes mellitus in childbirth, diet controlled (principal); Z3A.38 38 weeks gestation of pregnancy; Z37.0 Single live birth; O99.344 Other mental disorders complicating childbirth; F41.9 Anxiety disorder, unspecified; F32.A Depression, unspecified; O70.1 Second degree perineal laceration during delivery
CPT/HCPCS: 01967; 36415; 51701; 59025; 59409; 82947; 85025; 86592; 86850; 86900; 86901; A9270-GY; J2300; J2590; J3010; J3490; J7120

== ENCOUNTER 2024-03-17 07:32 | Inpatient (IN) | payer BC ==
[2024-03-17] MEDS ORDERED: Calcium Carbonate 500 MG Tab.Chew PO PRN (07:40)
[2024-03-17] MEDS ORDERED: Ondansetron 4 MG/2 ML SDV IVPUSH PRN (07:40)
[2024-03-17] MEDS ORDERED: Lidocaine 1% 50 ML MDV INJECT PRN (07:40)
[2024-03-17] MEDS ORDERED: Nalbuphine 10 MG/ML Syringe IVPUSH PRN (07:40)
[2024-03-17] MEDS ORDERED: Acetaminophen 325 MG Tab PO PRN ×2 (07:40→19:38)
[2024-03-17] MEDS ORDERED: Oxytocin/Lactated Ringers 30 UNIT/500 ML BAG IV SCH (07:45)
[2024-03-17 08:09] LABS: BASOPHILS ABSOLUTE AUTO 0.1 K/mm3 (0.0-0.2); BASOPHILS PERCENT AUTO 0.4 % (0.0-1.0); EOSINOPHILS ABSOLUTE AUTO 0.3 K/mm3 (0.0-0.4); EOSINOPHILS PERCENT AUTO 2.7 % (0.0-6.0); HEMATOCRIT 38.3 % (37.0-47.0); HEMOGLOBIN 13.1 gm/dl (12.0-16.0); IMMATURE GRAN ABSOLUTE AUTO 0.06 K/mm3 (0.00-0.05); IMMATURE GRAN PERCENT AUTO 0.5 % (0.0-0.4); LYMPHOCYTES ABSOLUTE AUTO 2.8 K/mm3 (1.0-4.8); LYMPHOCYTES PERCENT AUTO 22.8 % (24.0-44.0); MEAN CORPUSCULAR HEMOGLOBIN 30.9 pg (28.0-32.0); MEAN CORPUSCULAR HGB CONC 34.2 g/dl (32.0-36.0); MEAN CORPUSCULAR VOLUME 90.3 fl (83.0-99.0); MEAN PLATELET VOLUME 10.8 fl (9.4-12.3); MONOCYTES ABSOLUTE AUTO 0.7 K/mm3 (0.0-0.8); MONOCYTES PERCENT AUTO 5.6 % (0.0-8.0); NEUTROPHILS ABSOLUTE AUTO 8.4 K/mm3 (1.8-7.7); PLATELET COUNT,PLT 277 K/mm3 (150-400); RED BLOOD CELL COUNT 4.24 M/mm3 (4.10-5.30); WHITE BLOOD CELL COUNT,WBC 12.39 K/mm3 (3.9-11.3)
[2024-03-17] MEDS: Ampicillin 2 GM in Sodium Chloride 0.9% 100 ML IV ONE (08:31)
[2024-03-17] MEDS: Lactated Ringers 1,000 ML IV SCH (08:32)
[2024-03-17] MEDS: Ampicillin 1 GM in Sodium Chloride 0.9% 100 ML IV SCH (12:28)
[2024-03-17] MEDS: Oxytocin/Lactated Ringers 30 UNIT/500 ML BAG IV SCH (12:37)
[2024-03-17] MEDS ORDERED: diphenhydrAMINE 50 MG/ML SDV IVPUSH PRN (18:23)
[2024-03-17] MEDS ORDERED: Bupivacaine/fentaNYL/NS 100 ML Bag EPIDUR PRN (18:23)
[2024-03-17] MEDS ORDERED: ePHEDrine 50 MG/ML SDV IVPUSH PRN (18:23)
[2024-03-17] MEDS ORDERED: fentaNYL 100 MCG/2 ML SDV ONE (18:27)
[2024-03-17] MEDS: fentaNYL 100 MCG/2 ML SDV EPIDUR PRN (18:30)
[2024-03-17] MEDS ORDERED: Docusate Sodium 100 MG Cap PO PRN (19:38)
[2024-03-17] MEDS: Witch Hazel Medicated Pads 40/Jar TOP PRN (20:20)
[2024-03-17] MEDS: Benzocaine/Menthol 20%-0.5% Spray 78 GM Cannister TOP PRN (20:20)
[2024-03-17] MEDS: Sertraline 50 MG Tab PO SCH (21:58)
[2024-03-18] MEDS: Ibuprofen 600 MG Tab PO PRN (00:51)
== END 2024-03-18 08:45 | disposition home or self-care (01) | DRG 560 ==
LOC: JD.OBCHECK 07:32 → JD.OB 07:38 → JD.OBCHECK 07:58 → OBSVTOIN 18:59 → JD.OB 19:00
PROVIDERS: ADMIT Obstetrics & Gynecology; ATTEND Obstetrics & Gynecology
PROC: 10E0XZZ Delivery of Products of Conception, External Approach (ICD-10-PCS; principal; 2024-03-17)
PROC: 3E0R3BZ Introduction of Anesthetic Agent into Spinal Canal, Percutaneous Approach (ICD-10-PCS; 2024-03-17)
PROC: 00HU33Z Insertion of Infusion Device into Spinal Canal, Percutaneous Approach (ICD-10-PCS; 2024-03-17)
DX: O42.02 Full-term premature rupture of membranes, onset of labor within 24 hours of rupture (principal); Z37.0 Single live birth; O99.824 Streptococcus B carrier state complicating childbirth; Z3A.39 39 weeks gestation of pregnancy; Z98.890 Other specified postprocedural states; Z90.89 Acquired absence of other organs; Z90.49 Acquired absence of other specified parts of digestive tract
CPT/HCPCS: 36415; 59025; 59409; 85025; 86592; 86850; 86900; 86901; A9270-GY; J0290; J3010; J3490; J7120; J7999

== ENCOUNTER 2025-08-23 07:03 | Inpatient (IN) | payer BC ==
[2025-08-23] MEDS ORDERED: Sodium Chloride 0.9% 10 ML Syringe FLUSH PRN (07:05)
[2025-08-23] MEDS ORDERED: Ondansetron 4 MG/2 ML SDV IVPUSH PRN (07:05)
[2025-08-23] MEDS ORDERED: Nalbuphine 10 MG/1 ML Vial IVPUSH PRN (07:05)
[2025-08-23] MEDS ORDERED: Oxytocin/0.9 % Sodium Chloride 30 UNIT/500 ML BAG IV SCH (07:15)
[2025-08-23] MEDS: Misoprostol 25 MCG (1/4 of 100 MCG) Tab VAG ONE (07:26)
[2025-08-23] MEDS: Lactated Ringers 1,000 ML IV SCH (07:29)
[2025-08-23 07:46] LABS: BASOPHILS ABSOLUTE AUTO 0.0 K/mm3 (0.0-0.2); BASOPHILS PERCENT AUTO 0.3 % (0.0-1.0); EOSINOPHILS ABSOLUTE AUTO 0.2 K/mm3 (0.0-0.4); EOSINOPHILS PERCENT AUTO 1.6 % (0.0-6.0); IMMATURE GRAN ABSOLUTE AUTO 0.08 K/mm3 (0.00-0.05); IMMATURE GRAN PERCENT AUTO 0.7 % (0.0-0.4); LYMPHOCYTES ABSOLUTE AUTO 2.1 K/mm3 (1.0-4.8); LYMPHOCYTES PERCENT AUTO 18.8 % (24.0-44.0); MEAN PLATELET VOLUME 10.7 fl (9.4-12.3); MONOCYTES ABSOLUTE AUTO 0.5 K/mm3 (0.0-0.8); MONOCYTES PERCENT AUTO 4.5 % (0.0-8.0); NEUTROPHILS ABSOLUTE AUTO 8.4 K/mm3 (1.8-7.7); NEUTROPHILS PERCENT AUTO 74.1 % (41.0-71.0); NRBC ABSOLUTE 0.00 (0.00-0.02); NRBC PERCENT 0.0 % (0.0-0.2); RED BLOOD CELL COUNT 3.69 M/mm3 (4.10-5.30); WHITE BLOOD CELL COUNT,WBC 11.30 K/mm3 (3.9-11.3)
[2025-08-23 07:48] LABS: PLATELET COUNT,PLT 192 K/mm3 (150-400)
[2025-08-23] MEDS: Oxytocin/0.9 % Sodium Chloride 30 UNIT/500 ML BAG IV SCH (11:52)
[2025-08-23] MEDS ORDERED: diphenhydrAMINE 50 MG/ML SDV IVPUSH PRN (19:15)
[2025-08-23] MEDS ORDERED: ePHEDrine 50 MG/ML SDV IVPUSH PRN (19:15)
[2025-08-23] MEDS: Bupivacaine/fentaNYL/NS 100 ML Bag EPIDUR PRN (19:42)
[2025-08-24] MEDS: Witch Hazel Medicated Pads 40/Jar TOP PRN (00:10)
[2025-08-24] MEDS: Benzocaine/Menthol 20%-0.5% Spray 78 GM Cannister TOP PRN (00:11)
[2025-08-24] MEDS: Sodium Chloride 0.9% 10 ML Syringe FLUSH SCH (01:29)
== END 2025-08-25 10:40 | disposition home or self-care (01) | DRG 560 ==
LOC: OBSVTOIN 07:03 → JD.OB 07:03 → INTOOBSV 07:03 → OBSVTOIN 21:58 → JD.OB 21:59
PROVIDERS: ADMIT Obstetrics & Gynecology; ATTEND Obstetrics & Gynecology
PROC: 10E0XZZ Delivery of Products of Conception, External Approach (ICD-10-PCS; principal; 2025-08-23)
PROC: 3E033VJ Introduction of Other Hormone into Peripheral Vein, Percutaneous Approach (ICD-10-PCS; 2025-08-23)
PROC: 10907ZC Drainage of Amniotic Fluid, Therapeutic from Products of Conception, Via Natural or Artificial Opening (ICD-10-PCS; 2025-08-23)
PROC: 3E0DXGC Introduction of Other Therapeutic Substance into Mouth and Pharynx, External Approach (ICD-10-PCS; 2025-08-23)
PROC: 0U7C7DJ Dilation of Cervix with Intraluminal Device, Temporary, Via Natural or Artificial Opening (ICD-10-PCS; 2025-08-23)
PROC: 4A1HXCZ Monitoring of Products of Conception, Cardiac Rate, External Approach (ICD-10-PCS; 2025-08-23)
PROC: 3E0R3BZ Introduction of Anesthetic Agent into Spinal Canal, Percutaneous Approach (ICD-10-PCS; 2025-08-23)
PROC: 00HU33Z Insertion of Infusion Device into Spinal Canal, Percutaneous Approach (ICD-10-PCS; 2025-08-23)
DX: O99.344 Other mental disorders complicating childbirth (principal); F41.9 Anxiety disorder, unspecified; F32.A Depression, unspecified; Z3A.40 40 weeks gestation of pregnancy; Z37.0 Single live birth; O66.0 Obstructed labor due to shoulder dystocia
CPT/HCPCS: 36415; 51701; 59025; 59409; 85025; 86592; 86850; 86900; 86901; A9270-GY; C1726; J3490; J7120; J7999